=== PATIENT | female | born 1985 | race Caucasian/White ===

== ENCOUNTER → 2017-10-07 | Outpatient (CLI) | payer OTHER ==
[~2017-10-07] MED LIST: BUSP10 PO; BUSP15 PO; Bactrim 400-801 EACH PO; Benadryl 50 mg50 MG PO; CIPR500 PO; CITA20 PO; CLOBETTC TP; CYCL10 PO; Cleocin HCl300 MG PO; HYDACE5 PO; IBUP800 PO; LEVE500 PO; METCAR750 PO; MINO50; Metformin HCl500 MG PO; NYQUILL; Naprosyn500 MG PO; Nix Lice Treatm59 ML TOP; PHENA200 PO; PROM25 PO; Permethrin60 GM TP; Robaxin500 MG PO; SULTRIDS PO; Ultram50 MG PO; Veetids 500500 MG PO; [UNRECOGNIZED DRUG - REMARK]
== END | disposition home or self-care (01) ==
LOC: LAB 10:40
DX: L02.519 Cutaneous abscess of unspecified hand (principal)
CPT/HCPCS: 87070; 87205

== ENCOUNTER 2018-01-12 09:37 | Emergency (ER) | END 2018-01-12 12:39 | disposition home or self-care (01) ==

== ENCOUNTER → 2018-03-24 | Outpatient (CLI) | payer OTHER ==
[~2018-03-24] MED LIST changes: -BUSP10 PO; -LEVE500 PO; -Metformin HCl500 MG PO
[2018-03-26 15:09] LABS: HPV 16 Negative (Negative); HPV 18 Negative (Negative); HPV OTHER HR TYPES Negative (Negative)
== END | disposition home or self-care (01) ==
LOC: LAB SHORT 10:48 → LAB 10:48
PROVIDERS: Family Medicine
DX: Z01.419 Encounter for gynecological examination (general) (routine) without abnormal findings (principal)
CPT/HCPCS: 87624; G0145

== ENCOUNTER 2019-05-08 09:13 | Emergency (ER) | payer OTHER ==
[~2019-05-08] VITALS: Ht 167.6 cm; Wt 62.6 kg
[~2019-05-08 09:13] MED LIST changes: +BUSP10 PO; +LEVE500 PO; +Metformin HCl500 MG PO
[2019-05-08] MEDS ORDERED: NAPR550 PO (15:57)
[2019-05-08] MEDS ORDERED: CYCL10 PO (15:57)
== END 2019-05-08 13:26 | disposition home or self-care (01) ==
LOC: ER 09:13
DX: S03.03XA Dislocation of jaw, bilateral, initial encounter (principal); M26.623 Arthralgia of bilateral temporomandibular joint; X58.XXXA Exposure to other specified factors, initial encounter; Z79.899 Other long term (current) drug therapy; Z79.84 Long term (current) use of oral hypoglycemic drugs; F17.210 Nicotine dependence, cigarettes, uncomplicated
CPT/HCPCS: 21480; 70486; 96374-59; 96375-59; 99152; 99283-25; J1170; J2060; J2704; J3010; J3360; J7030

== ENCOUNTER → 2023-06-17 | Outpatient (CLI) | payer OTHER ==
[~2023-06-17] MED LIST changes: +NAPR550 PO
[2023-06-19 15:54] LABS: Candida species (DNA Probe) Negative (NEGATIVE); G. vaginalis (DNA Probe) Positive (NEGATIVE); T. vaginalis (DNA Probe) Negative (NEGATIVE)
[2023-06-20 16:11] LABS: HPV 16 Negative (Negative); HPV 18 Negative (Negative); HPV OTHER HR TYPES Negative (Negative)
== END ==
LOC: LAB 11:45 → LAB SHORT 11:45
PROVIDERS: Family Medicine
DX: Z01.419 Encounter for gynecological examination (general) (routine) without abnormal findings (principal)
CPT/HCPCS: 87480; 87510; 87624; 87660; G0145